=== PATIENT | female | born 1970 | race Caucasian/White ===

== ENCOUNTER → 2022-06-03 | Day surgery (SDC) | payer BC ==
[~2022-06-03] VITALS: Ht 165.1 cm; Wt 73.3 kg
[~2022-06-03] MED LIST: CLARITIN 1010 MG/TAB PO; COZAAR100 MG PO; PRILOSEC 20MG20 MG PO; SYNTHROID0.137 MG; ZYRTEC10MGSGL
[2022-06-03 08:35] VITALS: BP 117/66; PULSE 72
[2022-06-03 08:50] VITALS: BP 136/83; PULSE 86
[2022-06-03 09:05] VITALS: BP 120/67; PULSE 66
--- NOTE | 2022-06-03 09:11 | NUR ---
0835: Patient brought back into [facility] from endo procedure. Report received from PETRA Bartlett. Patient vitally stable on room air. Denies pain or nausea. Requesting crackers and water. Mom at bedside. Call light left within reach. 0840: Dr. Bronson in to see patient. 0850: Patient tolerating food and drink well. Denies pain or nausea. Vital signs stable on room air. 0900: Patient meets discharge criteria. IV removed without complications. Went through discharge instructions with patient and mom. Questions answered. Patient got dressed and escorted to the patient entrance via wheelchair. Patient got into personal vehicle and left in the care of their family member.
[2022-06-03 15:19] VITALS: BP 127/74; PULSE 76; TEMP 98.2
== END ==
LOC: SDCO 08-26 11:30
DX: Z12.11 Encounter for screening for malignant neoplasm of colon (principal); D12.5 Benign neoplasm of sigmoid colon
CPT/HCPCS: J2704; J7030